=== PATIENT | female | born 1940 | race Hispanic/Latino ===

== ENCOUNTER 2016-12-28 08:58 | Day surgery (SDC) | payer MEDICARE, BC ==
[2016-12-23 11:07] VITALS: BMI 26.9
[2016-12-28] MEDS ORDERED: Iohexol 240 200 ML IJ ONE ×2 (10:07→10:40)
[2016-12-28] MEDS ORDERED: Midazolam 2 MG/2 ML VIAL ONE (10:14)
[2016-12-28] MEDS ORDERED: Lactated Ringer's 1,000 ML IV ONE (10:26)
[2016-12-28] MEDS ORDERED: cefTRIAXone (Rocephin) 1 gm Inj IM ONE (10:30)
[2016-12-28] MEDS ORDERED: Lactated Ringer's 1,000 ML IV SCH (11:00)
[2016-12-28 12:06] VITALS: RESP 18
--- NOTE | 2016-12-28 12:07 | OP ---
PROCEDURE DATE: 12/28/2016 PREOPERATIVE DIAGNOSIS: Mixed urinary incontinence. POSTOPERATIVE DIAGNOSIS: Mixed urinary incontinence. PROCEDURE PERFORMED: Cystogram followed by cystoscopy. The patient was placed on the operating tabl e in a supine position. Chen catheter was inserted. At this time, it was emptied. She had less th an 20 mL residual in the bladder. I then filled the bladder to capacity with Cystografin material to the point of fullness and then some. She was able to hold approximately 300 mL of contrast fluid, a nd at this time, the catheter then was clamped. She was asked to cough in Valsalva, and there was no significant movement of the bladder or the bladder neck. At this time, I removed the catheter, aske d her to bend her legs and cough in Valsalva, and again, there was no significant urinary loss at thi s time. She was then given general anesthesia, and I emptied her bladder, and then did a formal cyst oscopy. The cystoscopy essentially was normal. There was no unusual bladder wall lesions. The blad ashley did not appear to be dropped. Ureteral orifices were identified. Once all this information was gathered, then the cystoscope was removed. The patient was taken from the operating room in good con dition. Cleo Harris MD cc: 48 TT: 12/28/2016 11:53:31 jn
--- NOTE | 2016-12-28 13:22 | DS ---
The patient came in for elective evaluation of the bladder. She underwent a cystoscopy and a cystogr am uneventfully. In recovery room, the patient is stable and doing well. She will be able to be dis charged home and follow up in the office. Cleo Harris MD cc: 48 TT: 12/28/2016 13:22:05 wi
[2016-12-28 13:47] VITALS: O2SAT 99
[2016-12-28 14:23] VITALS: BP 141/63; PULSE 53; TEMP 97.8
--- NOTE | 2016-12-28 16:54 | RAD ---
PROCEDURE: Less than 1 hr fluoroscopic time utilized during performance of the procedure. HISTORY: CYSTOGRAPHY COMPARISON: None TECHNIQUE: Standard protocol for this study/examination. FINDINGS: Submitted images from the current procedure: 4.0 IMPRESSION: Less than 1 hr fluoroscopic time utilized during performance of the procedure.
== END 2016-12-28 14:39 | disposition home or self-care (01) ==
LOC: H.OPSURG 08:58
PROVIDERS: ATTEND Urology
DX: N39.46 Mixed incontinence (principal); J45.909 Unspecified asthma, uncomplicated; I10 Essential (primary) hypertension; Z85.3 Personal history of malignant neoplasm of breast
CPT/HCPCS: 51600; 52000; J0696; J2250; J3010; J7120; Q9966